=== PATIENT | female | born 1965 | race Two or more races ===

== ENCOUNTER → 2024-06-27 | Outpatient (CLI) | payer OTHER, MEDICAID, SELFPAY ==
--- NOTE | 2024-06-27 13:56 | XR_ITS ---
Examination: Lumbar spine, 5 views Technique: Lumbar spine AP, lateral, coned lateral lower lumbar spine, bilateral obliques 5 views Exam date and time: June 27, 2024 1410 hours INDICATIONS: Lower back pain beginning 5 years ago FINDINGS: Moderate osteopenia Lumbar dextroscoliosis 12 degrees Moderate diffuse facet arthropathy No lumbar fracture Diffuse [id number] lumbar degenerative disc disease, most prominent at L5-S1 IMPRESSION: Diffuse [id number] lumbar degenerative disc disease, most prominent at L5-S1
--- NOTE | 2024-06-27 13:56 | XR_ITS ---
Examination: Forearm, left, 2 views. Technique: Forearm, AP, lateral 2 views Date and time of exam: June 27, 2024 1410 hours INDICATIONS: Injury to the forearm 5 years ago with persistent forearm pain. FINDINGS: Severe osteopenia No fracture or dislocation No elbow effusion No cortical bone destruction IMPRESSION: Severe osteopenia No fracture
--- NOTE | 2024-06-27 13:56 | XR_ITS ---
Examination: Shoulder,left, 3 views Technique: Shoulder AP internal rotation, AP external rotation, Y view shoulder, 3 views Exam date and time :June 27, 2024 1410 hours INDICATIONS: Injury to the shoulder 5 years ago with persistent shoulder pain. FINDINGS: Severe osteopenia Moderate narrowing glenohumeral joint No shoulder fracture 4 mm AC joint separation, age indeterminate IMPRESSION: Moderate narrowing glenohumeral joint 4 mm AC joint separation, age indeterminate, clinical correlation advised
--- NOTE | 2024-06-27 13:56 | XR_ITS ---
Examination: Ribs, bilateral, with PA chest, 7 views Technique: Chest PA, RIBS AP, RPO, LPO right and left ribs, AP coned lower ribs 7 views Exam date and time: December 25, 2024 1410 hours INDICATIONS: Injury to the chest 5 years ago with bilateral rib pain persisting Findings: Minor subsegmental atelectasis right base Mild to moderate elevation right hemidiaphragm Retrocardiac gastric hernia Normal heart size No pneumothorax Lungs are clear Prominent osteopenia No acute rib fractures IMPRESSION: Minor atelectasis right lung base No pneumonia or pulmonary contusion or pneumothorax Prominent osteopenia No acute rib fractures
--- NOTE | 2024-06-27 13:56 | XR_ITS ---
Examination: Hand, left 3 views Technique: Hand AP, oblique, lateral 3 views Date and time of exam: June 27, 2024 1410 hours INDICATIONS: Injury to the hand 5 years ago with persistent pain FINDINGS: Severe osteopenia No acute fracture Mild diffuse narrowing joints of the wrist and hand No cortical bone destruction No opaque foreign body No fracture IMPRESSION: Severe osteopenia Mild diffuse narrowing joints of the wrist and hand
== END | disposition home or self-care (01) ==
LOC: CDIM 13:44
PROVIDERS: PCP Nurse Practitioner Family; Referring Provider Nurse Practitioner Family; Visit Provider Nurse Practitioner Family
DX: M25.812 Other specified joint disorders, left shoulder (principal); M25.832 Other specified joint disorders, left wrist; J98.11 Atelectasis; M85.88 Other specified disorders of bone density and structure, other site; S43.102A Unspecified dislocation of left acromioclavicular joint, initial encounter; X58.XXXA Exposure to other specified factors, initial encounter; M51.369 Other intervertebral disc degeneration, lumbar region without mention of lumbar back pain or lower extremity pain; M51.379 Other intervertebral disc degeneration, lumbosacral region without mention of lumbar back pain or lower extremity pain; M85.842 Other specified disorders of bone density and structure, left hand; S69.92XS Unspecified injury of left wrist, hand and finger(s), sequela; S59.91 Unspecified injury of forearm; S29.9XXS Unspecified injury of thorax, sequela; X58.XXXS Exposure to other specified factors, sequela
CPT/HCPCS: 71111; 72110; 73030; 73090; 73130

== ENCOUNTER 2024-07-02 11:59 | Emergency (ER) | payer OTHER, MEDICAID, SELFPAY ==
[2024-07-02 12:09] VITALS: BP 163/87; PULSE 111; RESP 18; TEMP 36.9; O2SAT 96; BMI 29.5
--- NOTE | 2024-07-02 12:19 | XR_ITS ---
Examination: Shoulder,left, 3 views Technique: Shoulder AP internal rotation, AP external rotation, Y view shoulder, 3 views Exam date and time :July 02, 2024 1229 hours INDICATIONS: Patient fell 2 weeks ago with injury of the shoulder, shoulder pain. FINDINGS: No shoulder fracture or dislocation 4 mm AC joints offset age-indeterminate IMPRESSION: No shoulder fracture or dislocation Mild AC joint offset
--- NOTE | 2024-07-02 12:19 | XR_ITS ---
Examination: CT chest, without intravenous contrast. CT abdomen, without intravenous contrast. CT pelvis, without intravenous contrast. 2-D sagittal and coronal reconstructions. 3-D reconstructions. Date and time of exam:July 02, 2024 1246 hours INDICATIONS: Patient fell 2 weeks ago with injury to the chest, left chest and flank pain CTDI vol (mgy) 10.7 DLP (MGycm)752 Technique: Multiple CT images, 3.0 mm slice thickness, obtained chest, abdomen, pelvis, with the high-resolution 64 slice scanner.. Sagittal and coronal 2-D reconstructions are obtained. 3-D reconstructions Low dose protocols were performed. One or more of the following dose reduction techniques were used; automated exposure control, adjustment of the mA and/or KV according to patient size, use of iterative reconstruction technique. Findings: Thoracic aorta pulmonary arteries appear intact No hemopericardium Retrocardiac gastric hernia No pneumothorax pulmonary contusion or hemothorax Sternum thoracic vertebral bodies appear intact Ribs appear intact No visualized liver splenic or renal laceration on this noncontrast study No perinephric hematoma Abdominal aorta intact with no free blood in the abdomen Negative for pneumoperitoneum Normal appendix Moderate stool in the rectosigmoid No pelvic mass Urinary bladder intact Hips bones of the pelvis intact as well as lumbar vertebral bodies IMPRESSION: Thoracic aorta pulmonary arteries intact No hemopericardium, pneumothorax, pulmonary contusion or hemothorax No abdominal parenchymal laceration Abdominal aorta intact No free blood in the abdomen and pelvis Osseous structures appear intact
--- NOTE | 2024-07-02 12:19 | XR_ITS ---
Examination: Wrist, left 3 views Technique: Wrist AP, oblique, lateral 3 views Date and time of exam: July 02, 2024 1229 hours INDICATIONS: Patient fell 2 weeks ago with injury to the wrist, wrist pain. FINDINGS: No acute fracture No dislocation No foreign body IMPRESSION: No acute fracture
--- NOTE | 2024-07-02 14:47 | EDNOTE_ITS ---
<Statement entered by Shena Moreira MD - 07/05/24 09:19> As co-signing physician, I was present and available for consult prn. I concur with the plan and care as documented by the midlevel provider. Upper Extremity Injury RME/HPI General Chief Complaint: Back Pain/Injury Stated Complaint: BACK, SHOULDER, STOMACH PAIN; DROWNING WHEN I DRIN Time Seen by Provider: 07/02/24 12:09 Arrival date/time: 07/02/24 11:59 59-year-old female presents emergency department today complains of left-sided rib pain and left-sided shoulder pain and wrist pain after injury 2 weeks ago Limitations: no limitations Related Data Home Medications ?Medication ?Instructions ?Recorded ?Confirmed Levothyroxine * (SYNTHROID *) 75 mcg PO QDAY #0 tabs 01/25/15 10/19/22 clonazepam 1 mg tablet (Klonopin) 1 mg PO QDAY #0 tabs 04/06/17 10/19/22 mesalamine 1.2 gram tablet,delayed 1.2 g PO QDAY 10/19/22 10/19/22 release omeprazole 40 mg capsule,delayed 40 mg PO QDAY 10/19/22 10/19/22 release fluoxetine 10 mg capsule 10 mg PO QDAY 01/24/24 01/24/24 Allergies Allergy/AdvReac Type Severity Reaction Status Date / Time No Known Allergies Allergy Verified 07/02/24 12:02 Review of Systems Review of Systems Systems Reviewed: All systems reviewed, normal except as documented Constitutional Constitutional: Reports system reviewed and no additional complaints, except as documented, Denies fever(s) and Denies headache(s) Eyes Eyes: Reports system reviewed and no additional complaints, except as documented and Denies blurry vision ENT Ears, Nose, Mouth, and Throat: Reports system reviewed and no additional complaints, except as documented, Denies headache(s), Denies nasal congestion and Denies nasal discharge Cardiovascular Cardiovascular: Reports system reviewed and no additional complaints, except as documented, Denies chest pain and Denies dyspnea Respiratory Respiratory: Reports system reviewed and no additional complaints, except as documented, Denies chest congestion, Denies cough and Denies dyspnea Gastrointestinal Gastrointestinal: Reports system reviewed and no additional complaints, except as documented and Denies abdominal pain Musculoskeletal Musculoskeletal: Reports system reviewed and no additional complaints, except as documented, Reports arthralgias (Left wrist pain, left shoulder pain, left rib pain) and Denies deformity Integumentary/Breasts Skin/Breast: Reports system reviewed and no additional complaints, except as documented and Denies rash Neurologic Neurologic: Reports system reviewed and no additional complaints, except as documented, Reports as per HPI and Denies headache(s) Past Medical History Past Medical History NEUROLOGIC: Negative Neurological Disorders, Cerebrovascular Accident or Seizures CARDIAC: Positive Cardiac Disorders and Hypercholesterolemia; Negative Myocardial Infarction, Cardiac Arrhythmia or Congestive Heart Failure RESPIRATORY: Negative Chronic Obstructive Pulmonary Disease (COPD) GASTROINTESTINAL: Positive Ulcerative Colitis, Irritable Bowel and Hiatal Hernia; Negative Liver Cancer GENITOURINARY: Negative Genitourinary Disorders or Renal Disease MUSCULOSKELETAL: Positive Musculoskeletal Disorders and Arthritis ENDOCRINE: Positive Endocrine Disorders and Hypothyroidism; Negative Diabetes Mellitus Type 1 or Diabetes Mellitus Type 2 PSYCHO/SOCIAL: Positive Depression and Anxiety OTHER HISTORY: Negative Blood Transfusions, Anesthesia Reactions, Chicken Pox, Measles, Mumps or Cancer Family History FAMILY HISTORY: Positive Family Cancer (mother - uterine) Surgical History SURGICAL: Positive Tonsillectomy Social History SMOKING STATUS: Never smoker ED Exam General Limitations: Present no limitations General appearance: Present alert and in no apparent distress Head Head exam: Present atraumatic, normocephalic and normal inspection Eye Eye exam: Present normal appearance, PERRL and EOMI; Absent conjunctival injection ENT ENT exam: Present normal exam, normal oropharynx and mucous membranes moist Neck Neck exam: Present normal inspection, full ROM and trachea midline Chest Chest inspection: Present normal inspection and symmetric chest wall rise Respiratory Respiratory exam: Present normal lung sounds bilaterally; Absent respiratory distress Cardiovascular Cardiovascular exam: Present regular rate, normal rhythm and normal heart sounds Abdominal Exam Abdominal exam: Present soft and normal bowel sounds; Absent distention, tenderness, guarding, rebound or rigidity Extremities Exam Extremities exam: Present full ROM, tenderness and normal capillary refill; Absent joint swelling Back Exam Back exam: Present normal inspection and full ROM Neurological Exam Neurological exam: Present alert, oriented X3 and CN II-XII intact Psychiatric Psychiatric exam: Present normal affect and normal mood Skin Skin exam: Present warm, dry, intact and normal color Course Quality Measures none Orders Category Date Time Status CT chest abdomen pelvis wo Stat Exams 07/02/24 12:19 Completed XR shoulder LT min 2V Stat Exams 07/02/24 12:19 Completed XR wrist comp LT min 3V Stat Exams 07/02/24 12:19 Completed Vital Signs Vital signs: Vital Signs Temperature 98.5 F 07/02/24 12:09 Pulse Rate 111 H 07/02/24 12:09 Respiratory Rate 18 07/02/24 12:09 Blood Pressure 163/87 H 07/02/24 12:09 Pulse Oximetry (%) 96 07/02/24 12:09 Oxygen Delivery Method Room Air 07/02/24 12:09 O2 saturation 96% on room air within normal limits Extremity Injury MDM Narrative MDM Narrative:: 59-year-old female presents emergency department today complains of left-sided rib pain and left-sided shoulder pain and wrist pain after injury 2 weeks ago On exam patient has tenderness of left wrist and left shoulder as well as left- sided ribs CT scan as well as x-rays obtained Patient discharged home in no distress to follow-up with primary care doctor in the next 24 to 48 hours and for any worsening symptoms to return to the ER immediately Patient data External records reviewed:: [facility] previous records Clinical information provided by:: patient Social determinants that could affect healthcare access:: none Patient has the following chronic illnesses:: None How is presenting disease/condition affected by chronic disease/condition?: no chronic disease Evaluation data The following diagnostics were reviewed and interpreted by me:: radiology exam(s) Lab and/or radiology exams considered but not ordered:: Radiology obtain Interpretation Summary: Reviewed by me Medications / Prescriptions Medications or Prescriptions considered but not ordered:: Given Medication administrations:: Given Consultations Consultation(s) initiated? (list below): No Diagnosis Upper Extremity Injury Differential Diagnosis: other (Shoulder pain, shoulder fracture, AC separation, wrist sprain) Most likely diagnosis given after review of the tests above:: Wrist pain, AC separation, rib contusion Admission Indicated Admission indicated?: not indicated Admission Request Was there a request for admission?: No Disposition Plan Disposition Plan: Discharge Discharge Attestation Discharge Attestation: The patient and all family members were given an opportunity to ask questions and understood the discharge instructions. Discharge instructions specifically effects, indications for sooner follow up or return to the emergency department, and the expected course of current diagnosis. Patient condition: Stable Discharge Plan Plan Patient Disposition: HOME (Self Care) Disposition Comment: Stable Prescriptions/Referrals Prescriptions/Med Rec: No Action fluoxetine 10 mg capsule 10 mg PO QDAY Levothyroxine * (SYNTHROID *) 75 MCG tablet 75 mcg PO QDAY Qty: 0 clonazepam [Klonopin] 1 MG tablet 1 mg PO QDAY Qty: 0 Hold Instructions: Resume on 10/20/22. MAY RESUME TOMORROW omeprazole 40 mg Capsule,Delayed Release(Dr/Ec) 40 mg PO QDAY mesalamine 1.2 gram Tablet,Delayed Release (Dr/Ec) 1.2 g PO QDAY Referrals: Laurie([facility])Fabio NP [Primary Care Provider] - 07/04/24 Problem List Clinical Impression: Separation of left acromioclavicular joint Patient/Caregiver Discharge Instructions Education Materials: Treatment for Shoulder Separation Additional Instructions: Please follow up with your primary care doctor in the next 24-48hrs for any worsening symptoms return here immediately Please follow-up with PCP request outpatient MRI of your left shoulder if symptoms persist and if worsening symptoms return immediately Print Language: Indonesian Stand Alone Forms: Nidhi Award Info., Patient Portal Info Letter PA/KAILEY Supervising Physician NICOLAS/KAILEY Supervising Physician: Dr. MOREIRA
== END 2024-07-02 15:02 | disposition home or self-care (01) ==
PROVIDERS: Emergency Provider Emergency Medicine; PCP Nurse Practitioner Family
DX: S43.102A Unspecified dislocation of left acromioclavicular joint, initial encounter (principal); S29.9XXA Unspecified injury of thorax, initial encounter; S69.92XA Unspecified injury of left wrist, hand and finger(s), initial encounter; W19.XXXA Unspecified fall, initial encounter
CPT/HCPCS: 71250; 73030; 73110; 74176; 99284

== ENCOUNTER → 2024-07-11 | Outpatient (CLI) | payer OTHER, MEDICAID, SELFPAY ==
--- NOTE | 2024-07-11 | XR_ITS ---
Examination: Abdomen AP single view Technique: AP portable supine abdomen, single view Exam date and time: July 11, 2024 1305 hours INDICATIONS: Patient fell one month ago with injury of the abdomen followed by abdominal pain FINDINGS: Moderate air and stool throughout the colon Mild small bowel ileus No obstruction No free air Surgical clips upper right abdomen Bones of the pelvis hips and lumbar vertebral bodies appear intact IMPRESSION: Mild small bowel ileus
[2024-07-11 13:44] LABS: Basophils % (Auto) 1 % (0-2.5); Eosinophils # (Auto) 0.2 Thou/mm3 (0.0-0.5); Eosinophils % (Auto) 3 % (0-10); Hemoglobin 11.1 g/dL (12.0-16.0); Immature Granulocytes % (Auto) 0 % (0-0); Immature Granulocytes Auto 0.02 Thou/mm3 (0.00-0.00); Lymphocytes # (Auto) 3.3 Thou/mm3 (1.0-4.8); Lymphocytes % (Auto) 42 % (10-50); Mean Corpuscular HGB Conc 30.8 g/dl (31.0-37.0); Mean Corpuscular Hemoglobin 25.3 pg (25.0-35.0); Mean Corpuscular Volume 82 fL (80-100); Monocytes # (Auto) 0.4 Thou/mm3 (0.0-0.8); Monocytes % (Auto) 5 % (0-12); Neutrophils # (Auto) 3.9 Thou/mm3 (1.8-7.7); Neutrophils % (Auto) 49 % (37-80); Nucleated Red Blood Cell % 0 /100 WBC (0); Platelet Count 313 Thou/mm3 (140-440); RDW Standard Deviation 44.6 fL (36.4-46.3); Red Blood Count 4.39 Miln/mm3 (4.00-5.20); White Blood Count 7.9 Thou/mm3 (3.6-11.0)
[2024-07-11 13:59] LABS: Collection Type, Urine Clean Catch
[2024-07-11 14:04] LABS: Alanine Aminotransferase 18 U/L (10-49); Albumin, Serum 4.9 gm/dL (3.4-4.8); Alkaline Phosphatase 98 U/L (46-116); Amylase 65 U/L (30-118); Anion Gap 7 (7-16); Aspartate Amino Transferase 17 U/L (0-34); BUN/Creatinine Ratio 17 Ratio (12-20); Bilirubin,Total 0.9 mg/dL (0.3-1.2); Blood Urea Nitrogen 10 mg/dL (9-23); Calcium 9.7 mg/dL (8.3-10.6); Calcium (Corrected) 9.7 mg/dL (8.5-10.1); Carbon Dioxide 31.2 mMol/L (20.0-31.0); Chloride 102 mMol/L (98-107); Creatinine (Component) 0.6 mg/dL (0.6-1.3); Globulin 2.4 gm/dL (2.3-3.5); Glucose 86 mg/dL (74-106); Lipase 38 U/L (12-53); Osmolality,Calculated 277 (275-295); Potassium 4.1 mMol/L (3.4-5.1); Sodium 140 mMol/L (136-145); Total Protein 7.3 gm/dL (5.7-8.2); eGFR > 60 See Note
[2024-07-11 14:25] LABS: Bilirubin,Urine Negative (Negative); Blood,Urine Negative (Negative); Clarity,Urine Clear (Clear/Hazy); Color,Urine Lt-Yellow (Lt Yel-Yel); Glucose, Urine Negative (Negative); Ketones,Urine Negative (Negative); Leukocyte Esterase,Urine Negative (Negative); Nitrite,Urine Negative (Negative); Protein,Urine Negative (Neg - Trace); RBC,Urine 4 /hpf (0-3); Squamous Epithelial Cell,Urine 2 /hpf (0-5); Urobilinogen,Urine Negative mg/dL (0.0-1.0); WBC,Urine 1 /hpf (0-5)
== END | disposition home or self-care (01) ==
LOC: CDIM 11:40
PROVIDERS: Referring Provider Specialist; Visit Provider Specialist
DX: K56.7 Ileus, unspecified (principal); S39.91XA Unspecified injury of abdomen, initial encounter; W19.XXXA Unspecified fall, initial encounter
CPT/HCPCS: 36415; 74018; 80053; 81001; 82150; 83690; 85025

== ENCOUNTER 2024-09-01 10:10 | Outpatient (AMB) | payer OTHER, MEDICAID, SELFPAY ==
[2024-09-01 10:31] VITALS: BP 130/84; PULSE 98; RESP 16; TEMP 37; O2SAT 96; BMI 29.7
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
== END 2024-09-01 10:50 | disposition home or self-care (01) ==
LOC: HODSOBC 10:10
PROVIDERS: PCP Nurse Practitioner Family; Referring Provider Nurse Practitioner Family; Supervising Provider Obstetrics & Gynecology; Visit Provider Obstetrics & Gynecology
DX: Z12.4 Encounter for screening for malignant neoplasm of cervix (principal)
CPT/HCPCS: 99213; G0463

== ENCOUNTER → 2024-10-23 | Outpatient (CLI) | payer OTHER, MEDICAID, SELFPAY ==
--- NOTE | 2024-10-23 11:00 | XR_ITS ---
Examination: Screening digital mammography, bilateral Computer aided detection 3-D breast Tomosynthesis, bilateral Date and time of exam: October 23, 2024 1047 hours Compared to mammograms dating to February 06, 2017 Indication: Screening Technique: Nonmagnified MLO, CC views of the breasts to been obtained, reconstructed from 3-D Tomosynthesis images. R2 computer aided detection program utilized for evaluation of suspicious masses and/or abnormal calcifications. 3-D Tomosynthesis images obtained. Findings: The breasts are heterogeneously dense, which may obscure small masses 20 mm focal asymmetry 12:00 position right breast partially indistinct margins Impression: BI-RADS Category 0: Incomplete: Need additional imaging evaluation 20 mm focal asymmetry 12:00 position right breast partially indistinct margins, recommend follow-up spot tomographic views of this asymmetry as well as bilateral breast sonography to complete the workup
== END | disposition home or self-care (01) ==
LOC: CDIM 10:31
PROVIDERS: PCP Nurse Practitioner Family; Referring Provider Nurse Practitioner Family; Visit Provider Nurse Practitioner Family
DX: Z12.31 Encounter for screening mammogram for malignant neoplasm of breast (principal); N64.89 Other specified disorders of breast
CPT/HCPCS: 77063; 77067

== ENCOUNTER → 2025-01-20 | Outpatient (CLI) | payer OTHER, MEDICAID, SELFPAY ==
--- NOTE | 2025-01-20 | XR_ITS ---
Examination: Ultrasound soft tissue extremity left calf TECHNIQUE: Grayscale sonographic images soft tissue left calf Date and time: January 20, 2025 1117 hours INDICATIONS: Patient fell a few months ago with injury to the calf, 10 pain FINDINGS: No cystic or solid mass noted IMPRESSION: No cystic or solid mass noted.
--- NOTE | 2025-01-20 10:30 | XR_ITS ---
Examination: CT maxillofacial, without intravenous contrast. 2-D sagittal reconstructions. 3-D reconstructions. Date and time of exam:January 20, 2025 1102 hours INDICATIONS: Atypical facial pain and swelling beginning 5 years ago CTDI: vol (mGy):9.47 DLP: (mGycm):172 Technique: Multiple axial images of maxillofacial region, 3.0 mm slice thickness. 2-D sagittal and coronal reconstructions. 3-D reconstructions. Low dose protocols were performed. One or more of the following dose reduction techniques were used; automated exposure control, adjustment of the mA and/or KV according to patient size, use of iterative reconstruction technique. Findings: Symmetrical optic globes No facial cellulitis or soft tissue abscess Symmetrical submandibular glands The larynx appears normal Frontal bones orbital rims intact Significant right ethmoid right sphenoid sinusitis Maxilla mandible intact IMPRESSION: Significant right ethmoid right sphenoid acute sinusitis.
== END | disposition home or self-care (01) ==
PROVIDERS: PCP Nurse Practitioner Family; Referring Provider Nurse Practitioner Family; Visit Provider Nurse Practitioner Family
DX: J01.80 Other acute sinusitis (principal); M79.662 Pain in left lower leg; S89.92XS Unspecified injury of left lower leg, sequela; W19.XXXS Unspecified fall, sequela
CPT/HCPCS: 70486; 76882

== ENCOUNTER → 2025-05-22 | Outpatient (CLI) | payer OTHER, MEDICAID, SELFPAY ==
--- NOTE | 2025-05-22 10:30 | XR_ITS ---
Examination: Diagnostic digital mammography, unilateral, left Computer aided detection 3-D breast Tomosynthesis, unilateral Date and time of exam: Right May 22, 2025, 1202 hours INDICATIONS: Mammogram October 24, 1999 2520 mm focal asymmetry 12 o'clock position right breast Technique: Nonmagnified MLO, CC views of the right breast have been obtained, reconstructed from 3-D Tomosynthesis images. R2 computer aided detection program utilized for evaluation of suspicious masses and/or abnormal calcifications. 3-D Tomosynthesis images obtained. Findings: The breast is heterogeneously dense, which may obscure small masses 9:00 nodule circumscribed right breast is depicted on the spot compression views, corresponding to the nodule 5 mm on the right breast sonogram today Impression: BI-RADS category 3: Probably benign findings Recommend 1 additional 6-month right mammogram follow-up to document stability of 5 mm nodule 9 o'clock position right breast
--- NOTE | 2025-05-22 10:45 | XR_ITS ---
Examination: Breast ultrasound complete, bilateral Date and time of exam: May 22, 2025, 1109 hours INDICATION: Mammogram 01/24/2000 2520 mm focal asymmetry 12 o'clock position right breast, left breast pain 3 months Technique: Real-time grayscale ultrasonographic imaging bilateral breasts, including all 4 quadrants as well as nipple retroareolar and axillary regions. Findings: Sonographic images right breast Benign cysts 9:00 nodule lobular margins 5 x 4 mm 19 mm right axillary lymph node Sonographic images left breast Benign cysts 1:00 nodule circumscribed 6 x 5 mm 3:00 nodule circumscribed 4 x 4 mm IMPRESSION: BI-RADS Category 3: Probably benign findings Bilateral 6-month breast sonography follow-up is needed to document stability of multiple nodules described above
== END | disposition home or self-care (01) ==
PROVIDERS: PCP Nurse Practitioner Family; Referring Provider Nurse Practitioner Family; Visit Provider Nurse Practitioner Family
DX: R92.331 Mammographic heterogeneous density, right breast (principal); N63.25 Unspecified lump in the left breast, overlapping quadrants; N63.15 Unspecified lump in the right breast, overlapping quadrants; N63.21 Unspecified lump in the left breast, upper outer quadrant
CPT/HCPCS: 76641; 77061; 77065; G0279